=== PATIENT | female | born 1950 | race Caucasian/White ===

== ENCOUNTER → 2016-07-20 | Outpatient (CLI) | payer OTHER | LOC: FIMAGING 08:37 | PROVIDERS: ATTEND Orthopaedic Surgery Orthopaedic Surgery of the Spine | DX: T84.216A Breakdown (mechanical) of internal fixation device of vertebrae, initial encounter (principal); S32.040A Wedge compression fracture of fourth lumbar vertebra, initial encounter for closed fracture; S32.020A Wedge compression fracture of second lumbar vertebra, initial encounter for closed fracture; M48.06 Spinal stenosis, lumbar region; M51.86 Other intervertebral disc disorders, lumbar region; Z98.1 Arthrodesis status ==

== ENCOUNTER → 2017-01-11 | Outpatient (CLI) | payer OTHER | LOC: FIMAGING 14:40 | PROVIDERS: ATTEND Family Medicine | DX: Z12.31 Encounter for screening mammogram for malignant neoplasm of breast (principal) | CPT/HCPCS: G0202 ==

== ENCOUNTER 2017-05-22 14:53 | Emergency (ER) | payer OTHER ==
[2017-05-22 14:59] VITALS: RESP 18
--- NOTE | 2017-05-22 15:12 | EDPHY ---
H & P Stated Complaint: left wrist pain Time Seen by Provider: 05/22/17 15:11 HPI/ROS: HPI: This is a 66-year-old female who presents with Chief Complaint: Left hand pain Location: Left hand Quality: Pain Duration: Since Saturday (3 days) Signs and Symptoms: No bleeding, no radiation, no numbness, no weakness, no tingling, no incontinence, + mild decreased range of motion, + swelling, + pain , + bruising Timing: Gradual onset Severity: [id number] Context: Patient has a history of rheumatoid arthritis, alcohol abuse, seizure activity presents with having a seizure sometime Saturday evening. found her and within a few seconds seizure self-resolved. The next morning, the patient notes some bruising on the palm and the back of her left hand. The bruising has gradually worsened and grown darker in appearance. She has mild stiffness in her 3rd, 4th, 5th digits. She does not take any blood thinners. Right-hand dominant. Denies any paresthesias/weakness. Modifying Factors: Comment: ROS: see HPI Constitutional: No fever, no chills, no weight loss Eyes: No blurred vision Respiratory: No shortness of breath, no cough Cardiovascular: No chest pain Gastrointestinal: No nausea, no vomiting no diarrhea Genitourinary: No dysuria Extremities: No myalgias Neurologic: No weakness, no numbness Skin: No rashes Hematologic: No bruising, no bleeding MEDICAL/SURGICAL/SOCIAL HISTORY: Medical history: HTN, Depression, ETOH abuse, etoh w/d seizures PSH: L leg sx; episiotomy Social history: . CONSTITUTIONAL: Pleasant elderly white female, at bedside, awake and alert, no obvious distress HEENT: Atraumatic and normocephalic, PERRL, EOMI. no globe entrapment, no raccoon eyes. no Nevaerz signs.Tympanic membranes clear. No tympanic membrane rupture. Nares patent; no septal hematoma. Oropharynx clear, no exudate and moist pink mucosa. No malocclusion. no dental trauma. Airway patent. No lymphadenopathy. NECK: supple, no midline tenderness, flexion 45 degrees, extension 45 degrees, right and left lateral flexion 45 degrees. No meningismus. Cardiovascular: Normal S1/S2, regular rate, regular rhythm, without murmur rub or gallop. PULMONARY/CHEST: Symmetrical and nontender. no crepitus. Clear to auscultation bilaterally. Good air movement. No accessory muscle usage. ABDOMEN: Soft, nondistended, nontender, no ecchymosis, no rebound, no guarding , no peritoneal signs, no masses or organomegaly. No CVAT. PELVIC: no pain with rocking; bilateral hips flexion 125 degrees, extension 30 degrees, with no pain internal rotation and no pain external rotation. BACK: No midline tenderness, no paraspinous spasm, deep tendon reflexes 2/2, no pain with straight leg raise EXTREMITIES: 2/2 radial pulses, strength 5/5, left WRIST: Extension to 70, flexion to 80, radial deviation to 20 degree, ulnar deviation to 30, no scaphoid tenderness, no tenderness over ulnar styloid, no tenderness over radial styloid. Black ecchymosis noted on the dorsal and volar aspect of the left hand, DIP/PIP/MCP joints good flexion/extension/light touch sensation. Nodules noted from chronic arthritis. no clubbing, no cyanosis or edema. NEUROLOGICAL: no focal neuro deficits. GCS 15. SKIN: Warm and dry, no erythema. no rash. Good capillary refill. Source: Patient, Family () Exam Limitations: No limitations - Personal History Current Tetanus/Diphtheria Vaccine: Yes Current Tetanus Diphtheria and Acellular Pertussis (TDAP): Yes Tetanus Vaccine Date: within last 5 years - Medical/Surgical History Hx Asthma: No Hx Chronic Respiratory Disease: No Hx Diabetes: No Hx Cardiac Disease: No Hx Renal Disease: No Hx Cirrhosis: No Hx Alcoholism: Yes Hx HIV/AIDS: No Hx Splenectomy or Spleen Trauma: No Other PMH: HTN, Depression, ETOH abuse, etoh w/d seizures. PSH: L leg sx; episiotomy; - Social History Smoking Status: Never smoked Constitutional: Initial Vital Signs Temperature (C) 36.7 C 05/22/17 14:56 Heart Rate 86 05/22/17 14:56 Respiratory Rate 18 05/22/17 14:56 Blood Pressure 119/83 H 05/22/17 14:56 O2 Sat (%) 97 05/22/17 14:56 O2 Delivery Mode Room Air Allergies/Adverse Reactions: hornet venom Allergy (Verified 11/26/15 15:45) Home Medications: Medication Instructions Recorded amLODIPine BESYLATE [Norvasc 5 mg 5 mg PO DAILY 04/09/15 (*)] Venlafaxine Xr [Effexor Xr 75MG 75 mg PO DAILY #30 cap 04/10/15 (*)] Acamprosate Calcium [Campral 333 666 mg PO TID 06/14/15 MG (*)] EPINEPHRINE [EPIPEN] 0.3 mg IM ONCE #2 syr 11/26/15 predniSONE 60 mg PO DAILY 3 Days tab 11/26/15 Medical Decision Making - Diagnostics Imaging Results: Imaging Impressions Hand X-Ray 05/22/17 15:03 Impression: Potentially several acute findings described above correlation with the site of the patient's symptoms is recommended. Procedures: Procedure: Splint placement. Aishwarya-taped the 3rd and 4th fingers and left Velcro wrist splint was applied by the emergency lead quality technician. After application of the splint I returned and re- examined the patient. The splint was adequately immobilizing the joint and distal to the splint the patient's circulation and sensation was intact. ED Course/Re-evaluation: X-ray ordered No signs of neurovascular compromise/tenting of skin/compartment syndrome/ extremities and joints examined above and below area of concern and are neurovascularly intact. X-ray my read shows abnormality at the distal radius lateral side appears chronic in nature. and patient reports that she had a ski injury greater than 10 years ago in that same area. Radiologist raises the question of a nondisplaced ? Vertical lateral based 4th phalanx fracture and middle phalanx dorsal base fracture; patient is minimally tender in these areas; aishwarya- taped together. Given Velcro wrist splint This patient was seen under the supervision of my secondary supervising physician. I evaluated care for this patient independently. Differential Diagnosis: Differential diagnosis includes but is not limited to sprain, contusion, hematoma, fracture, nerve injury, tendon injury. Departure - Departure Disposition: Home, Routine, Self-Care Clinical Impression: Contusion of left hand, initial encounter Injury of left hand Qualifiers: Encounter type: initial encounter Qualified Code(s): S69.92XA - Unspecified injury of left wrist, hand and finger(s), initial encounter Sprain of left wrist Qualifiers: Encounter type: initial encounter Qualified Code(s): S63.502A - Unspecified sprain of left wrist, initial encounter Condition: Good Instructions: Contusion in Adults (ED), Hand Sprain (ED) Additional Instructions: Wear the splint while out of bed until pain free. Aishwarya-taped your 3rd or 4th fingers together until pain free. Take Tylenol 650 mg every 4 hours and/or Ibuprofen 600 mg every 8 hours with food as needed for pain. Follow up with Orthopedics in 7-10 days if symptoms persist or worsen at which time they will evaluate and recommend with you if conservative management versus adjuvant therapy is indicated. The x-rays obtained in the emergency department today demonstrate no evidence of an obvious fracture. Sometimes fractures are not obvious on the initial set of x-rays performed in the ED. For this reason, you should have repeat x-rays performed in 7-10 days if you are having any pain exclude the possibility of an occult fracture. Referrals: Ryann Hopson MD [Primary Care Provider] - As per Instructions
[2017-05-22 16:36] VITALS: BP 112/78; PULSE 78; TEMP 98.4; O2SAT 96
== END 2017-05-22 16:35 | disposition home or self-care (01) ==
DX: S60.222A Contusion of left hand, initial encounter (principal); S63.502A Unspecified sprain of left wrist, initial encounter; I10 Essential (primary) hypertension; X58.XXXA Exposure to other specified factors, initial encounter; Y99.8 Other external cause status; Y93.89 Activity, other specified
CPT/HCPCS: L3908

== ENCOUNTER → 2018-01-16 | Outpatient (CLI) | payer OTHER | LOC: FIMAGING 08:15 | PROVIDERS: ATTEND Family Medicine | DX: Z12.31 Encounter for screening mammogram for malignant neoplasm of breast (principal) ==